=== PATIENT | female | born 1980 ===

== ENCOUNTER 2024-04-17 13:59 | Emergency (ER) | payer OTHER, SELFPAY ==
--- NOTE | ~2024-04-17 | XR_ITS ---
EXAMINATION: XR CHEST CLINICAL INFORMATION: right sided chest pain COMPARISON: None available. TECHNIQUE: 2 views of the chest were obtained. FINDINGS: The cardiac, hilar, and mediastinal contours are normal. The lungs are clear bilaterally. There is no pneumothorax or pleural effusion. There is no focal osseous or soft tissue abnormality. XR/XR chest 2V IMPRESSION: Normal chest. Electronically signed by: Brett Alan MD 04/17/2024 03:43 PM [facility]
--- NOTE | 2024-04-17 14:02 | ECG_ITS ---
Test Reason : chest pain Blood Pressure : / mmHG Vent. Rate : 075 BPM Atrial Rate : 075 BPM P-R Int : 136 ms QRS Dur : 088 ms QT Int : 374 ms P-R-T Axes : 051 050 042 degrees QTc Int : 417 ms Normal sinus rhythm with sinus arrhythmia Normal ECG No previous ECGs available Referred By: Melania Donovan Electronically Signed By:AKIRA TORRES
[2024-04-17 14:12] VITALS: BP 143/90; PULSE 78; RESP 16; TEMP 36.3; O2SAT 99; BMI 37.3
--- NOTE | 2024-04-17 14:12 | ED_ITS ---
HPI - Chest Pain General Chief Complaint: Chest Pain Stated Complaint: Chest pain, tightness in arms Time Seen by Provider: 04/17/24 15:07 Source: patient, RN notes reviewed and old records reviewed Mode of arrival: ambulatory History of Present Illness ED Provider: Zohreh Garcia PA-C HPI narrative: 43-year-old female with no significant past medical history presenting to the ED complaining of substernal/right-sided chest pain x 2-3 days with intermittent heaviness to RUE & lightheadedness. Admits pain worse with deep breathing and palpation. Admits saw PCP in office who ordered labs to rule out clot. Also reports dry cough and sick contacts. Denies fever, chills, nausea, vomiting, pedal edema, travel Related Data Allergies Allergy/AdvReac Type Severity Reaction Status Date / Time shellfish derived [shellfish] Allergy Anaphylaxis Verified 04/17/24 14:17 Review of Systems 2 Review of Systems: Yes all other systems are reviewed and are negative Constitutional: Constitutional: Reports as per [facility] Past Medical History Attestation statement: The following information was validated with the patient. Source: old records reviewed Social History Social History Smoked in Last 30 Days: No Use of substances other than those prescribed or required for medical reasons: No Advance Directives: No Advance Directives Information Provided: Yes Physical Exam 2 Vital Signs: Vital Signs: Last Vital Signs Temp 98.4 F 04/17/24 18:40 Pulse 68 04/17/24 18:40 Resp 18 04/17/24 18:40 BP 127/64 04/17/24 18:40 Pulse Ox 98 04/17/24 18:40 O2 Del Method Room Air 04/17/24 18:40 BMI result Body Mass Index 37.3 Const: General: cooperative, healthy appearing and no acute distress O rientation/consciousness: patient oriented x3 Limitations: no limitations HEENT: Head: Yes normal to inspection and Yes atraumatic Ears: hearing grossly normal bilaterally General nose exam: Normal external nose present Face and sinus: Yes normal facial exam Eyes: General: appearance normal, both eyes and all related structures EOM: EOMs intact bilaterally Neck: Neck: Yes normal visual inspection and Yes no meningeal signs Chest: Other: + chest pain reproducible to palpation o f right chest wall. No rash, erythema or ecchymosis Chest palpation & inspection: normal inspection of the chest, no crepitus and tenderness Resp: Effort & Inspection: normal respiratory effort and no respiratory distress Auscultation: clear to auscultation bilaterally, no crackles and no wheezes Cardio: Rate: regular rate Heart sounds: S1 normal heart sound present and S2 normal heart sound present GI: Inspection: Yes normal to inspection Palpation (GI): Soft to palpation, nontender, no guarding and not rigid : General: Yes no CVA tenderness Back/Spine/Pelvis: Back: no CVA tenderness Skin: Rashes: no rashes Wounds: no wounds Neuro: General: patient oriented x3, tone normal and no meningeal signs C ranial nerves: Yes CN's II-XII intact bilaterally Gait exam (Neuro): Normal gait present Extrem: General: Yes normal to inspection, Yes no pedal edema and Yes no calf tenderness Course Course Course Narrative: This is a Rapid Medical Examination (RME) performed by Miguelito Donovan PA-C in triage. Full HPI, ROS, assessment and treatment plan per primary provider in the Main ED. 43 yo female presents to the ER for evaluation of right sided chest pain that started 2 days ago, getting slightly better. feels like something is stuck in her chest. she reports new heavy feeling in her right arm and lightheadedness. seen at her PCP office yesterday and they ordered blood work to r/o blood clot, she had the blood work today. Plan: EKG, CXR, labs -1624--no leukocytosis. H/H stable. Troponin negative. Labs otherwise reassuring XR chest 2V IMPRESSION: Normal chest. -1828--D-dimer negative, PE unlikely -viral studies negative Results discussed with patient including worrisome signs and symptoms and strict return precautions, and when to return to the emergency department. They verbalized understanding and feel safe for discharge at this time. Medical Decision Making Medical Decision Making MDM Narrative: 43-year-old female with no significant past medical history presenting to the ED complaining of substernal/right-sided chest pain x 2-3 days with intermittent heaviness to RUE & lightheadedness. On exam vital signs stable, NAD, nontoxic appearing, lungs CTA, chest pain reproducible on exam, no pedal edema. Concern for costochondritis vs PE vs atypical ACS vs pneumonia. Low suspicion for dissection, DVT Plan: EKG, labs, CXR, viral studies Please refer to course for remaining clinical decision making, interpretation of labs/imaging results, and discussions with consultants and/or family members. Differential Diagnosis Differential Diagnoses: The differential diagnosis associated with the presentation includes As above Admission/Observation Consideration of admission/observation: Escalation of care including admission/observation considered Lab Data MDM Lab Attestation statement: I reviewed the patient's lab results. 04/17/24 14:30 04/17/24 14:30 Labs: Lab Results 04/17/24 04/17/24 04/17/24 Range/Units 14:30 14:58 16:51 WBC 5.4 (4.8-10.8) X10*3/uL RBC 3.69 L (4.20-5.50) X10*6/uL Hgb 11.4 L (12.0-16.0) g/dl Hct 34.8 L (37.0-47.0) % MCV 94.3 (80.0-98.0) fL MCH 30.9 (27.0-33.0) pg MCHC 32.8 (31.0-35.0) g/dl RDW 12.6 (11.0-16.0) % Plt Count 252 (160-400) X10*3/uL MPV 9.2 L (9.4-12.3) fL Immature Gran % (Auto) 0.2 (0.0-0.4) % Neut % (Auto) 59.9 (45-73) % Lymph % (Auto) 29.3 (20-40) % Sharp % (Auto) 7.7 (2-11) % Eos % (Auto) 2.2 (0-4) % Baso % (Auto) 0.7 (0-2) % Lymph # (Auto) 1.6 (1.2-4.9) X10*3/uL Sharp # (Auto) 0.4 (0.1-1.2) X10*3/uL Eos # (Auto) 0.1 (0.0-0.4) X10*3/uL Baso # (Auto) 0.0 (0.0-0.2) X10*3/uL Abs Immat Gran (auto) 0.01 (0.00-0.03) X10*3/uL Absolute Neuts (auto) 3.2 (2.0-8.3) x10*3/uL Absolute Nucleated RBC 0.000 (0.0-0.012) X10*3/uL Nucleated RBC % (auto) 0.0 (0.0-0.2) /100WBC D-Dimer High Sensitivty < 150 NG/ML Sodium 141 (135-145) mmol/L Potassium 3.9 (3.3-5.1) mmol/L Chloride 107 (96-108) mmol/L Carbon Dioxide 29 (22-29) mmol/L Anion Gap 9 L (12-20) BUN 11 (9-16) mg/dL Creatinine 0.72 (0.5-1.4) mg/dL Estim Creat Clear Calc 108.7 Estimated GFR > 60 Random Glucose 92 (60-115) mg/dL Calcium 8.9 (8.4-10.2) mg/dL Magnesium 1.9 (1.6-2.6) mg/dL Total Bilirubin 0.5 (0.0-1.0) mg/dL Direct Bilirubin 0.2 (0.0-0.5) mg/dL AST 20 (5-31) U/L ALT 10 (0-31) U/L Alkaline Phosphatase 67 (39-117) U/L Troponin I High Sens < 2.7 (<3.5-17.0) ng/L Total Protein 7.6 (6.5-8.0) g/dL Albumin 4.1 (3.5-5.0) g/dL Urine Test NEGATIVE (NEGATIVE) Influenza Type A (PCR) NEGATIVE (Negative) Influenza Type B (PCR) NEGATIVE (Negative) RSV RNA Qual (PCR) NEGATIVE (Negative) SARS-CoV-2 RNA (RT-PCR) NEGATIVE (Negative) Independent Interpretation I performed an independent interpretation of an: EKG (My interpretation EKG normal sinus rhythm with sinus arrhythmia rate of 75. QRS 88. QTC 417. No previous to compare. No STEMI ) and Plain X-Ray Radiology Impression Discussion of test interpretation with radiology: I have reviewed the radiologist's reading. External Record Review External record reviewed: Inpatient record, Office record, Outpatient record, Prior outpatient labs, Prior outpatient radiology, Primary care record and Outside ED record Tests considered The following testing was considered but not selected: As above Prescription Management I considered prescription management with: Pain Medication Chronic Conditions Patient?s care impacted by: Other Social Determinants Patient?s care significantly limited by Social Determinants of Health including: Other Social Determinant of Health Discharge Plan Discharge Clinical Impression: Atypical chest pain Patient Disposition: Home, Self-Care Instructions: Noncardiac Chest Pain (ED) Additional Instructions: Your blood work, chest x-ray, viral studies are all reassuring Please have close follow-up with her doctor as well as Cardiology If her symptoms persist or worsen, you have constant worsening chest pain, shortness of breath, fever return to the emergency department Referrals: [facility] [place] [facility] [place] [facility] [Provider Group] Annelise Montgomery MD [Primary Care Provider] - 1 week Interventions: ED Discharge Assessment Last Done: 04/17/24 18:40 Discharge Date/Time: 04/17/24 18:41 Print Language: Somali
[2024-04-17 14:35] LABS: Basophils Percent Auto 0.7 % (0-2); Eosinophils Absolute Auto 0.1 X10*3/uL (0.0-0.4); Eosinophils Percent Auto 2.2 % (0-4); Hematocrit 34.8 % (37.0-47.0); Hemoglobin 11.4 g/dl (12.0-16.0); Imm Gran Abs Auto 0.01 X10*3/uL (0.00-0.03); Imm Gran Pct Auto 0.2 % (0.0-0.4); Lymphocytes Absolute Auto 1.6 X10*3/uL (1.2-4.9); Lymphocytes Percent Auto 29.3 % (20-40); MANUAL DIFF FLAG NO; Mean Corpuscular HGB Conc 32.8 g/dl (31.0-35.0); Mean Corpuscular Hemoglobin 30.9 pg (27.0-33.0); Mean Corpuscular Volume 94.3 fL (80.0-98.0); Mean Platelet Volume 9.2 fL (9.4-12.3); Monocytes Absolute Auto 0.4 X10*3/uL (0.1-1.2); Monocytes Percent Auto 7.7 % (2-11); Neutrophils Absolute Auto 3.2 x10*3/uL (2.0-8.3); Neutrophils Percent Auto 59.9 % (45-73); Platelet Count 252 X10*3/uL (160-400); Red Blood Count 3.69 X10*6/uL (4.20-5.50); Red Cell Distribution Width 12.6 % (11.0-16.0); White Blood Count 5.4 X10*3/uL (4.8-10.8)
[2024-04-17 14:51] LABS: Alanine Aminotransferase 10 U/L (0-31); Albumin Level 4.1 g/dL (3.5-5.0); Alkaline Phosphatase 67 U/L (39-117); Anion Gap 9 (12-20); Aspartate Amino Transferase 20 U/L (5-31); Bilirubin Direct 0.2 mg/dL (0.0-0.5); Bilirubin Total 0.5 mg/dL (0.0-1.0); Blood Urea Nitrogen 11 mg/dL (9-16); Calcium 8.9 mg/dL (8.4-10.2); Carbon Dioxide 29 mmol/L (22-29); Chloride 107 mmol/L (96-108); Creatinine Clr Calc Pharmacy 108.7; Estimated Glomerular Filt Rate > 60; Glucose Random 92 mg/dL (60-115); Magnesium 1.9 mg/dL (1.6-2.6); Potassium 3.9 mmol/L (3.3-5.1); Sodium 141 mmol/L (135-145); Total Protein 7.6 g/dL (6.5-8.0)
[2024-04-17 14:58] LABS: Troponin-I High Sensitivity < 2.7 ng/L (<3.5-17.0)
[2024-04-17 15:11] LABS: UPreg QC Valid YES; Urine Pregnancy NEGATIVE (NEGATIVE)
[2024-04-17 16:00] VITALS: BP 97/61; PULSE 85; RESP 18; TEMP 36.8; O2SAT 100
[2024-04-17 17:25] LABS: D Dimer High Sensitivity < 150 NG/ML
[2024-04-17 17:37] LABS: Influenza A PCR NEGATIVE (Negative); Influenza B PCR NEGATIVE (Negative); Resp Syncy Virus RNA Qual PCR NEGATIVE (Negative); SARS COV2 PCR INHOUSE NEGATIVE (Negative)
[2024-04-17 18:00] VITALS: BP 124/74; PULSE 98; RESP 18; O2SAT 98
[2024-04-17 18:40] VITALS: BP 127/64; PULSE 68; RESP 18; TEMP 36.9; O2SAT 98
--- OUTSIDE RECORDS SUMMARY | 2024-04-17 18:49 | XMS_ITS | Data Portability ---
Author Organization [facility], [address] Address [address] [place] [address] Assessment No assessment recorded. Plan of Treatment Reminders Order Date Submit Date Provider Last Modified By Organization Details Last Modified Time Details Appointments None recorded. Lab None recorded. Referral None recorded. Procedures None recorded. Surgeries None recorded. Imaging None recorded. Medication Orders polymyxin B sulfate 10,000 unit-trime thoprim 1 mg/mL eye drops 2022 023 [id number], [phone] [place], [address], 19:36:53 Patient TargetsNo targets recorded. Patient Instructions Encounter Date Encounter Id Patient Instructions Last Modified By Organization Details Last Modified Time 12/25/2022 [id number] pinkeye: care instructions [email or web address] Not available 12/25/2022 19:36:51 styes and chalazia: care instructions [email or web address] Not available 12/25/2022 19:36:51 Use the eye drop s as prescribed. Apply warm compresses to your eye frequently. Do not manipulate the styes. See printed instructions. Follow-up with your doctor or [facility] if no improvement in a few days. Seek Emergency Medical evaluation for any worsening symptoms, particularly for fever, headache, rash, stiff neck, visual disturbance, light sensitivity. [email or web address] Not available 12/25/2022 19:38:22 Reason for Referral None Reported. 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 Medical Equipment None Reported. Allergies Allergen ID Allergen Name Allergen Category Reaction Reaction Severity Criticality Documentation Date Start Date Code Code System Note Provider Name and Address Organization Details Recorded Time 857413 cat dander environme nt Not available Not available low 12/25/2022 THEO MARION null, PA - [facility] 3 18:20:58 Medications Name Sig Start Date Stop Date Status Note LastModified by Organization Details LastModified Time ondansetron HCl 4 mg tablet TAKE 1 TABLET BY MOUTH EVERY 8 HOURS NEEDED FOR NAUSEA FOR UP TO 7 DAYS. 12/25 completed Not Available Not Available Not Available polymyxin B sulfate 10,000 unit-trimet hoprim 1 mg/mL eye drops INSTILL 1 DROP INTO AFFECTED EYE(S) BY OPHTHALMI C ROUTE EVERY 6 HOURS 2022 active Not Available Not Available Not Avai lable ergocalcife rol (vitamin D2) 1,250 mcg (50,000 unit) capsule TAKE 1 CAPSULE BY MOUTH ONCE A WEEK FOR 12 DOSES. 12/25 completed Not Available Not Available Not Available diclofenac 1 % topical gel APPLY 4 GRAMS TOPICALLY 2 TIMES DAILY NEEDED (KNEE AND ELBOW PAIN) 12/25 completed Not Available Not Available Not Available Vitals Date Recorded Oxygen saturation Oxygen saturation in Arterial blood by Pulse oximetry Heart rate Respiratory rate Body temperature Body height Body mass index (BMI) Body weight Systolic blood pressure Diastolic blood pressure Provider Name and Address Organization Details Last Updated DateTime 100 % 100 % 90 /min 19 /min 98.8 [degF] 157.48 cm 36.2 kg/m2 30698.2 9 g 107 mm[Hg] 74 mm[Hg] THEO GONZALEZCOCO PA - [facility] 18:27:04 Social History Question Answer Notes LastModified by Organizat ion Details LastModified Time Tobacco Smoking Status Never Smoker THEO AGUIRREALBINO neri, [place] - [facility] 12/25/2022 18:24:43 What Is Your Level Of Alcohol Consumption? None Information not available 12/25/2022 Are You Currently Employed? No Information not available 12/25/2022 Do You Use Any Illicit Or Recreational Drugs? No Information not available 12/25/2022 Have You Recently Traveled Abroad? No [place] Information not available 12/25/2022 Are You Currently In School? No Information not available 12/25/2022 Sex: Unknown Functional Status None recorded. Mental Status None recorded. Family History Relationship Description Onset Age of this Age Resolved Age Notes LastModified by Organization Details LastModified Time Father Schizophreni a [email or web address] Not available 12/25 18:24:08 Medical History No medical history recorded. Gynecological History Statement/Question Response Date of LMP 11/07/2022 Is there any chance of ? Unsure Obstetrics History GPAL:G 0 P 0 0 0 0 Past Encounters Encounter ID Performer Location Encounter Start Date Encounter Closed Date Diagnosis/Indication Diagnosis SNOMED-CT Code Diagnosis ICD10 Code [id number] [address] [place] [address] 01/23/2022 17:43:21 01/23/2022 19:23:43 [id number] [address] [place] [address] 12/06/2017 16:01:23 12/06/2017 17:41:18 [id number] [address] [facility] [place] [address] 11/25/2021 09:57:46 11/25/2021 10:23:01 [id number] [address] [facility] [place] [address] 03/27/2018 17:01:58 03/27/2018 18:28:32 [id number] [place] [address] [facility] [address] [place] [address] 12/25/2022 18:16:29 12/25/2022 19:49:20 Hordeolum externum of upper eyelid of left eye 8248026430 51330 H00.014 Acute conj unctivitis of left eye 6393826107 88419 H10.32 Health Concerns Section Related Observation LastModified by Organization Detai ls LastModified Time None Recorded Concern Status LastModified by Organization Details LastModified Time None Recorded Advance Directives Directive None Recorded Payers Encounter Date Sequence Insurance Name Policy Number Policy Charles Covered Member ID Charles Member ID Guarantor Name 12/06/2017 1 [employer] (MEDICAID HMO) [employer] Aleshia L Agarwal [id number] Aleshia Agarwal 03/27/2018 1 [employer] (MEDICAID HMO) [employer] Aleshia L Agarwal [id number] Aleshia Agarwal 11/25/2021 1 [employer] (MEDICAID HMO) [employer] Aleshia L Agarwal [id number] Aleshia Agarwal 01/23/2022 1 [employer] (MEDICAID HMO) [employer] Aleshia L Agarwal [id number] Aleshia Agarwal 12/25/2022 1 [employer] (MEDICAID HMO) [employer] Aleshia L Agarwal [id number] Aleshia Agarwal Notes Date Note Type Note Provider Name and Address Organization Details Recorded Time 3 text/html Eye problemsReported bypatient.source of patient informationInformation obtained from patient; Patient arrived at Urgent Care ambulatory Location:left Eye Symptoms:no sensitivity to light; no pain in the eyes; no blurred vision;redness;discharge;it snehal; Left upper and lower lid swelling with ? stye. Severity:moderate Onset/Timindays Context:No history of eye trauma, contact lens use, foreign body sensation, chemical exposure. Modifying Factors:nothing gives relief bridgette Aggravating factors:No photophobia.Notes:42 year old female presenting for evaluation of left upper and lower lid redness and swelling with tenderness and possible stye getting worse for the past 3 days. She has also noted some eye redness and itching with a crusty yellow discharge. No fever, chills, headache, blurry vision, direct eye pain, photophobia, eye trauma, contact lens use, foreign body sensation or chemical exposure. No rash, headache or nasal congestion. Claudia Jerez MD [address] [facility] [place], [address], [place] - [facility] 12/28/2022 14:46:11 OBGyn Episode No OBEpisode recorded.
== END 2024-04-17 18:41 | disposition home or self-care (01) ==
PROVIDERS: Physician Assistant; Emergency Provider Emergency Medicine; PCP Internal Medicine
DX: R07.89 Other chest pain (principal); Z03.818 Encounter for observation for suspected exposure to other biological agents ruled out; R05.9 Cough, unspecified
CPT/HCPCS: 0241U; 36415; 71046; 80048; 80076; 81025; 83735; 84484; 85025; 85379; 93005; 99283; 99285

== ENCOUNTER → 2024-04-17 14:02 | Outpatient (BNV) | payer MEDICAID, SELFPAY | PROVIDERS: PCP Internal Medicine; Visit Provider Internal Medicine | DX: R07.9 Chest pain, unspecified (principal) | CPT/HCPCS: 93010 ==

== ENCOUNTER → 2024-04-17 14:17 | Outpatient (BNV) | payer MEDICAID, SELFPAY | PROVIDERS: PCP Internal Medicine; Visit Provider Radiology Diagnostic Radiology | DX: R07.9 Chest pain, unspecified (principal) | CPT/HCPCS: 71046 ==

== ENCOUNTER 2024-09-21 10:03 | Emergency (ER) | payer OTHER, SELFPAY ==
[2024-09-21] VITALS (9 sets, daily range): BP systolic 94–132; BP diastolic 55–72; PULSE 65–88; RESP 16–20; TEMP 36.5–37.1; O2SAT 95–100; BMI 38.6
--- NOTE | ~2024-09-21 | CT_ITS ---
CLINICAL HISTORY: R sided neck pain, R finger numbness CT cervical spine without contrast Comparison: None Findings: Straightening of the normal cervical lordosis. No fracture. Multilevel degenerative change is most prominent at C6/C7 with moderate to severe central spinal canal stenosis. No epidural hematoma. Normal thickness of the prevertebral soft tissues. The lung apices are clear. Impression: Straightening of the normal cervical lordosis could be positional or secondary to muscle spasm. Multilevel degenerative change is most prominent at C6/C7 with moderate to severe central spinal canal stenosis. This can be better characterized with nonemergent cervical spine MR. This document has been electronically signed by: Elizabeth Rojo MD on 09/21/2024 13:17:41
--- NOTE | ~2024-09-21 | XR_ITS ---
CLINICAL HISTORY: exertional sob, cough Chest Radiographs, 2 views Comparison: 04/17/24 Findings: No cardiomegaly. Normal mediastinal contours. No pneumothorax. No opacity. No pleural effusion. Normal upper abdomen. No acute fracture. Impression: No acute findings. This document has been electronically signed by: Elizabeth Rojo MD on 09/21/2024 13:21:46
--- NOTE | 2024-09-21 10:43 | ECG_ITS ---
Test Reason : NUEROLOGICAL ISSUE Blood Pressure : */* mmHG Vent. Rate : 72 BPM Atrial Rate : 72 BPM P-R Int : 136 ms QRS Dur : 88 ms QT Int : 398 ms P-R-T Axes : 44 48 41 degrees QTcB Int : 435 ms Normal sinus rhythm with sinus arrhythmia Normal ECG When compared with ECG of 17-Apr-2024 14:11, No significant change was found Referred By: Generic ED Physician Electronically Signed By: Spencer Samano
[2024-09-21 11:07] LABS: MANUAL DIFF FLAG NO
[2024-09-21 11:09] LABS: Basophils Absolute Auto 0.1 X10*3/uL (0.0-0.2); Basophils Percent Auto 1.3 % (0-2); Eosinophils Absolute Auto 0.2 X10*3/uL (0.0-0.4); Eosinophils Percent Auto 3.7 % (0-4); Hematocrit 35.6 % (37.0-47.0); Hemoglobin 11.7 g/dl (12.0-16.0); Imm Gran Abs Auto 0.01 X10*3/uL (0.00-0.03); Imm Gran Pct Auto 0.2 % (0.0-0.4); Lymphocytes Absolute Auto 1.4 X10*3/uL (1.2-4.9); Lymphocytes Percent Auto 29.7 % (20-40); Mean Corpuscular HGB Conc 32.9 g/dl (31.0-35.0); Mean Corpuscular Hemoglobin 30.5 pg (27.0-33.0); Mean Corpuscular Volume 92.7 fL (80.0-98.0); Monocytes Absolute Auto 0.4 X10*3/uL (0.1-1.2); Monocytes Percent Auto 8.8 % (2-11); Neutrophils Absolute Auto 2.6 x10*3/uL (2.0-8.3); Neutrophils Percent Auto 56.3 % (45-73); Platelet Count 279 X10*3/uL (160-400); Red Blood Count 3.84 X10*6/uL (4.20-5.50); Red Cell Distribution Width 12.5 % (11.0-16.0); White Blood Count 4.6 X10*3/uL (4.8-10.8)
--- NOTE | 2024-09-21 11:20 | ED_ITS ---
HPI - Neuro Symptoms/Deficit General Chief Complaint: Neuro Symptoms/Deficit Stated Complaint: numbness in hands Time Seen by Provider: 09/21/24 11:20 Source: patient, RN notes reviewed and old records reviewed Mode of arrival: ambulatory History of Present Illness ED Provider: Zohreh Garcia PA-C HPI Narrative: 44-year-old female no significant past medical history presenting to the ED complaining of right 2nd and 3rd finger paresthesias/numbness since waking this morning. Admits symptoms are resolved at present. Admits to similar episodes in the past. Also reports right-sided neck pain, exertional dyspnea, cough & lightheadedness - all intermittent x months. Denies fever, chills, [place], weakness. Denies anticoagulation use. Related Data Allergies Allergy/AdvReac Type Severity Reaction Status Date / Time shellfish derived [shellfish] Allergy Anaphylaxis Verified 09/21/24 10:41 Review of Systems 2 Review of Systems: Yes all other systems are reviewed and are negative Constitutional: Constitutional: Reports as per HPI Neurologic: Denies Abnormal speech present and Denies Sensory deficit (Neuro) [facility] Past Medical History Attestation statement: The following information was validated with the patient. Source: old records reviewed Physical Exam 2 Vital Signs: Vital Signs: Last Vital Signs Temp 98.7 F 09/21/24 16:04 Pulse 68 09/21/24 16:04 Resp 20 09/21/24 16:04 BP 132/71 09/21/24 16:04 Pulse Ox 95 09/21/24 16:04 O2 Del Method Room Air 09/21/24 16:04 BMI result Body Mass Index 38.6 Const: General: cooperative, healthy appearing and no acute distress O rientation/consciousness: patient oriented x3 Limitations: no limitations HEENT: Head: Yes normal to inspection and Yes atraumatic Ears: hearing grossly normal bilaterally General nose exam: Normal external nose present Face and sinus: Yes normal facial exam Mouth: Normal oral and palatal mucosa present and no drooling Throat: Yes posterior oropharynx normal, Yes uvula midline, No peritonsillar mass, No uvula laterally displaced and No uvular edema Eyes: General: appearance normal, both eyes and all related structures P upils: Equal, round and reactive pupils present EOM: EOMs intact bilaterally Neck: Other: No midline cervical spinous tenderness. Right-sided cervical paraspinal/trapezius muscle reproducible tenderness Neck: Yes normal visual inspection, Yes no meningeal signs, No anterior neck swelling and No torticollis Resp: Effort & Inspection: normal respiratory effort and no respiratory distress Auscultation: clear to auscultation bilaterally, no crackles, no rhonchi and no wheezes Cardio: Rate: regular rate Heart sounds: S1 normal heart sound present and S2 normal heart sound present GI: Inspection: Yes normal to inspection Palpation (GI): Soft to palpation, nontender, no guarding and not rigid Back/Spine/Pelvis: Other: No midline cervical/thoracic/lumbar spinous tenderness/step-off or deformity Skin: Rashes: no rashes Wounds: no wounds Neuro: General: patient oriented x3, gait normal, tone normal, moves all extremities, no meningeal signs, no focal motor deficits and CN's II-XI intact bilaterally Cranial nerves: Yes CN's II-XII intact bilaterally, Yes Equal, round and reactive pupils present and Yes Bilaterally intact EOM present C ognition (Neuro): normal cognition Speech: No Abnormal speech present Gait exam (Neuro): Normal gait present Motor exam (neuro): 5/5 motor strength present throughout Sensory Exam: No Sensory deficit (Neuro) Extrem: General: Yes normal to inspection Course Course Course Narrative: -1400--no leukocytosis. H&H at patient's baseline. Labs otherwise reassuring including negative troponin -viral testing negative XR chest 2V Impression: No acute findings. CT cervical spine wo IV con Impression: Straightening of the normal cervical lordosis could be positional or secondary to muscle spasm. Multilevel degenerative change is most prominent at C6/C7 with moderate to severe central spinal canal stenosis. This can be better characterized with nonemergent cervical spine MR. -orthostatic vital signs negative > results discussed with patient. Recommended outpatient nonemergent MRI. Patient is supplied with copy of CT results -1528--troponin x2 negative Results discussed with patient including worrisome signs and symptoms and strict return precautions, and when to return to the emergency department. They verbalized understanding and feel safe for discharge at this time. Medical Decision Making Medical Decision Making MDM Narrative: 44-year-old female no significant past medical history presenting to the ED complaining of right 2nd and 3rd finger paresthesias/numbness since waking this morning. Also reports right-sided neck pain, exertional dyspnea, cough & lightheadedness - all intermittent x months. On exam vital signs stable, NAD, nontoxic appearing, no focal neuro deficits, lungs CTA. Concern for atypical ACS vs cervical radiculopathy vs viral illness. Rule out pneumonia. Unlikely PE, dissection, DVT, CVT or meningitis/encephalitis Plan: EKG, labs, CXR, cervical spine CT, re-evaluate Please refer to course for remaining clinical decision making, interpretation of labs/imaging results, and discussions with consultants and/or family members. Differential Diagnosis Differential Diagnoses: The differential diagnosis associated with the presentation includes As above Admission/Observation Consideration of admission/observation: Escalation of care including admission/observation considered Lab Data MDM Lab Attestation statement: I reviewed the patient's lab results. 09/21/24 11:02 09/21/24 11:02 Labs: Lab Results 09/21/24 09/21/24 09/21/24 Range/Units 11:02 11:38 14:37 WBC 4.6 L (4.8-10.8) X10*3/uL RBC 3.84 L (4.20-5.50) X10*6/uL Hgb 11.7 L (12.0-16.0) g/dl Hct 35.6 L (37.0-47.0) % MCV 92.7 (80.0-98.0) fL MCH 30.5 (27.0-33.0) pg MCHC 32.9 (31.0-35.0) g/dl RDW 12.5 (11.0-16.0) % Plt Count 279 (160-400) X10*3/uL MPV 9.0 L (9.4-12.3) fL Immature Gran % (Auto) 0.2 (0.0-0.4) % Neut % (Auto) 56.3 (45-73) % Lymph % (Auto) 29.7 (20-40) % Reynolds % (Auto) 8.8 (2-11) % Eos % (Auto) 3.7 (0-4) % Baso % (Auto) 1.3 (0-2) % Lymph # (Auto) 1.4 (1.2-4.9) X10*3/uL Reynolds # (Auto) 0.4 (0.1-1.2) X10*3/uL Eos # (Auto) 0.2 (0.0-0.4) X10*3/uL Baso # (Auto) 0.1 (0.0-0.2) X10*3/uL Abs Immat Gran (auto) 0.01 (0.00-0.03) X10*3/uL Absolute Neuts (auto) 2.6 (2.0-8.3) x10*3/uL Absolute Nucleated RBC 0.000 (0.0-0.012) X10*3/uL Nucleated RBC % (auto) 0.0 (0.0-0.2) /100WBC Sodium 140 (135-145) mmol/L Potassium 3.7 (3.3-5.1) mmol/L Chloride 106 (96-108) mmol/L Carbon Dioxide 25 (22-29) mmol/L Anion Gap 13 (12-20) BUN 9 (9-16) mg/dL Creatinine 0.75 (0.5-1.4) mg/dL Estim Creat Clear Calc 105.4 Estimated GFR > 60 Random Glucose 93 (60-115) mg/dL Calcium 8.9 (8.4-10.2) mg/dL Magnesium 2.1 (1.6-2.6) mg/dL Total Bilirubin 0.8 (0.0-1.0) mg/dL AST 20 (5-31) U/L ALT 12 (0-31) U/L Alkaline Phosphatase 83 (39-117) U/L Troponin I High Sens < 2.7 < 2.7 (<3.5-17.0) ng/L Total Protein 7.5 (6.5-8.0) g/dL Albumin 4.1 (3.5-5.0) g/dL Influenza Type A (PCR) NEGATIVE (Negative) Influenza Type B (PCR) NEGATIVE (Negative) RSV RNA Qual (PCR) NEGATIVE (Negative) SARS-CoV-2 RNA (RT-PCR) NEGATIVE (Negative) Independent Interpretation I performed an independent interpretation of an: EKG, Plain X-Ray and CT Scan Radiology Impression Discussion of test interpretation with radiology: I have reviewed the radiologist's reading. External Record Review External record reviewed: Inpatient record, Office record, Outpatient record, Prior outpatient labs, Prior outpatient radiology, Primary care record and Outside ED record Tests considered The following testing was considered but not selected: As above Prescription Management I considered prescription management with: Other Chronic Conditions Patient?s care impacted by: Other Social Determinants Patient?s care significantly limited by Social Determinants of Health including: Other Social Determinant of Health Discharge Plan Discharge Clinical Impression: Neck muscle spasm, Paresthesia, Exertional dyspnea Patient Disposition: Home, Self-Care Instructions: Paresthesia (ED), Dyspnea (ED), Muscle Spasm (ED) Additional Instructions: Your blood work is reassuring Your you head scan shows some degenerative/arthritic changes of your cervical spine. We recommended nonemergent cervical spine MRI outpatient. This can be done by your primary care doctor. There is also evidence of muscle spasming Make sure you are staying hydrated at home Continue home prescribed medications If her symptoms persist or worsen return, you develop constant worsening chest pain, shortness of breath, weakness, headache, vision loss return to the ED to the emergency department Referrals: Annelise Montgomery MD [Primary Care Provider] - 5 days Interventions: ED Discharge Assessment Last Done: 09/21/24 16:04 Discharge Date/Time: 09/21/24 16:05 Print Language: Libyan
[2024-09-21 11:21] LABS: Alanine Aminotransferase 12 U/L (0-31); Albumin Level 4.1 g/dL (3.5-5.0); Alkaline Phosphatase 83 U/L (39-117); Anion Gap 13 (12-20); Aspartate Amino Transferase 20 U/L (5-31); Bilirubin Total 0.8 mg/dL (0.0-1.0); Blood Urea Nitrogen 9 mg/dL (9-16); Calcium 8.9 mg/dL (8.4-10.2); Carbon Dioxide 25 mmol/L (22-29); Chloride 106 mmol/L (96-108); Creatinine Clr Calc Pharmacy 105.4; Estimated Glomerular Filt Rate > 60; Glucose Random 93 mg/dL (60-115); Potassium 3.7 mmol/L (3.3-5.1); Sodium 140 mmol/L (135-145); Total Protein 7.5 g/dL (6.5-8.0)
[2024-09-21 11:47] LABS: Magnesium 2.1 mg/dL (1.6-2.6)
[2024-09-21 12:11] LABS: Troponin-I High Sensitivity < 2.7 ng/L (<3.5-17.0)
[2024-09-21 12:19] LABS: Influenza A PCR NEGATIVE (Negative); Influenza B PCR NEGATIVE (Negative); Resp Syncy Virus RNA Qual PCR NEGATIVE (Negative); SARS COV2 PCR INHOUSE NEGATIVE (Negative)
[2024-09-21 15:22] LABS: Troponin-I High Sensitivity < 2.7 ng/L (<3.5-17.0)
== END 2024-09-21 16:05 | disposition home or self-care (01) ==
PROVIDERS: Physician Assistant; Emergency Provider Emergency Medicine; PCP Internal Medicine
DX: R20.0 Anesthesia of skin (principal); M54.2 Cervicalgia; I49.8 Other specified cardiac arrhythmias; M62.838 Other muscle spasm; R06.02 Shortness of breath; Z03.818 Encounter for observation for suspected exposure to other biological agents ruled out; Z79.899 Other long term (current) drug therapy
CPT/HCPCS: 0241U; 36415; 71046; 72125; 80053; 83735; 84484; 85025; 93005; 99284

== ENCOUNTER → 2024-09-21 10:43 | Outpatient (BNV) | payer OTHER, SELFPAY | PROVIDERS: Emergency Provider Emergency Medicine; PCP Internal Medicine; Visit Provider Internal Medicine Cardiovascular Disease | DX: R20.2 Paresthesia of skin (principal) | CPT/HCPCS: 93010 ==

== ENCOUNTER → 2024-09-21 11:34 | Outpatient (BNV) | payer OTHER, SELFPAY | PROVIDERS: Emergency Provider Emergency Medicine; PCP Internal Medicine; Visit Provider Radiology Diagnostic Radiology | DX: M50.323 Other cervical disc degeneration at C6-C7 level (principal); M48.02 Spinal stenosis, cervical region; R06.02 Shortness of breath; R05.9 Cough, unspecified | CPT/HCPCS: 71046; 72125 ==

== ENCOUNTER 2025-03-01 12:09 | Emergency (ER) | payer OTHER, SELFPAY ==
[2025-03-01 12:25] VITALS: BP 132/72; PULSE 94; RESP 18; TEMP 36.1; O2SAT 98; BMI 39.8
--- NOTE | 2025-03-01 12:25 | ED_ITS ---
HPI - General Adult General Chief complaint: General Medical Stated complaint: feeling sick due being exposed to a substance Time Seen by Provider: 03/01/25 14:08 Source: patient Mode of arrival: ambulatory Limitations: no limitations History of Present Illness ED Provider: Noemy Prado PA-C HPI narrative: Patient is a 44 year old assigned female at with no reported medical history presenting to the emergency department today feeling generally unwell after touching an unknown substance. Patient states that while cleaning the company car - she encountered an unknown substance and then had numbness in her left thumb / hand afterwards that has now resolved. 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 Patient denies any other complaints at this time. Related Data Allergies Allergy/AdvReac Type Severity Reaction Status Date / Time shellfish derived (shellfish) Allergy Anaphylaxis Verified 03/01/25 12:25 Review of Systems Constitutional: Constitutional: Reports as per HPI Eyes: Eyes: Reports as per HPI ENT: Reports as per HPI Cardiovascular: Cardiovascular: Reports as per HPI Respiratory: Respiratory: Reports as per HPI Gastrointestinal: Gastrointestinal: Reports as per HPI Genitourinary: Genitourinary: Reports as per HPI Musculoskeletal: Musculoskeletal: Reports as per HPI Integumentary/Breasts: Skin/Breast: Reports as per HPI Neurologic: Reports as per HPI Psychiatric: Psychiatric: Reports as per HPI Endocrine: Endocrine: Reports as per HPI Hematologic/Lymphatic: Hematologic/Lymphatic: Reports as per HPI Allergic/Immunologic: Allergic/Immunologic: Reports as per HPI PMF Past Medical History Attestation statement: The following information was validated with the patient. Source: old records reviewed and nursing notes reviewed Social History Social History Advance Directives: No Advance Directives Information Provided: Yes Physical Exam ED Vital Signs: BMI result Body Mass Index 39.8 Const General: cooperative, no acute distress, alert and awake Nutritional Appearance: well nourished Orientation/consciousness: patient oriented x3 HENMT Head: Yes normal to inspection and Yes atraumatic Ears: hearing grossly normal bilaterally and external ears normal General nose exam: Normal external nose present, no nasal discharge noted and no epistaxis Face and sinus: Yes normal facial exam, No abrasion and No laceration Mouth: Normal oral and palatal mucosa present, no drooling and no muffled voice Eyes General: appearance normal, both eyes and all related structures Periorbital: periorbital findings normal Eyelids: Yes eyelids normal Conjunctivae: conjunctivae normal Pupils: Equal, round and reactive pupils present EOM: EOMs intact bilaterally Neck Neck: Yes normal visual inspection and Yes full ROM Resp Effort & Inspection: normal respiratory effort and able to speak in complete sentences Neuro General: patient oriented x3, moves all extremities and CN's II-XI intact bilaterally Cranial nerves: Yes Equal, round and reactive pupils present Cognition (Neuro): normal cognition Extrem General: Yes normal to inspection, Yes full ROM and Yes capillary refill normal Psych Appearance: grossly normal Mental Status: mental status grossly normal Affect: normal affect Attitude: cooperative Thought process: Normal thought process present Thought content: Normal thought content present Insight: Good insight present (Psych) Course Course Course Narrative: This is a Rapid Medical Exam performed in triage by Zohreh Gracia PA-C. Full HPI, ROS and PE to be performed by primary ED provider. 44 yo F w/no sig pmhx presenting to the ED c/o L hand numbness/tingling s/p cleaning husbands company work car [employer] & touching unknown substance. States her husbands job involves driving patrons to Meth[facility]one clinics. Admits grabbed a samuel on the car floor that had a substance on it and immediately developed symptoms. PE: NAD, nontoxic appearing Plan: EKG, TREJO Medical Decision Making Medical Decision Making MDM Narrative: Patient is a 44 year old assigned female at with no reported medical history presenting to the emergency department today feeling generally unwell after touching an unknown substance. Patient's physical exam was as noted in the physical exam portion of this note. Patient's urine toxicology showed no acute process. Patient's EKG showed no obvious evidence of arrhythmia, ischemia, or infarct. Patient's clinical presentation is most consistent with a somatic response to a perceived exposure to a potentially dangerous substance. I explained my physical exam findings as well as all test results to the patient. I answered all questions asked by the patient. I stressed the importance of the patient taking her medication as directed (either prescribed or as the over the counter packaging recommends). I stressed the importance of the patient following up with her primary care provider. I stressed the importance of the patient returning to the emergency department immediately if her symptoms were to worsen or if she were to develop any dizziness, shortness of breath, difficulty breathing, chest pain, blurry vision, loss of vision, nausea, vomiting, abdominal pain, fever, chills, back pain, or any other complaints. Patient verbalized agreement and understanding with this treatment plan and discharge. Differential Diagnosis Differential Diagnoses: The differential diagnosis associated with the presentation includes Substance exposure Anxiety Somatic response Admission/Observation Consideration of admission/observation: Escalation of care including admission/observation considered Patient would have been admitted to the hospital had her work up had any findings where hospital admission was appropriate and her clinical presentation warranted hospital admission. Lab Data [facility] Lab Attestation statement: I reviewed the patient's lab results. My interpretation of these results are in the [facility] Rationale portion of this note. Labs: Lab Results 03/01/25 Range/Units 13:00 Urine Opiates Screen Not Detected (Not Detect) Ur Buprenorphine Scrn Not Detected (Not Detect) ng/mL Ur Oxycodone Screen Not Detected (Not Detect) ng/mL Urine Methadone Screen Not Detected (Not Detect) ng/mL Urine Fentanyl Screen Not Detected (Not Detect) Ur Barbiturates Screen Not Detected (Not Detect) Ur Phencyclidine Scrn Not Detected (Not Detect) Ur Amphetamines Screen Not Detected (Not Detect) U Benzodiazepines Scrn Not Detected (Not Detect) Urine Cocaine Screen Not Detected (Not Detect) U Marijuana (THC) Screen Not Detected (Not Detect) Independent Interpretation I performed an independent interpretation of an: EKG Interpretation: I independently interpreted this EKG and am in agreement with the below findings: Vent. Rate: 71 BPM Atrial Rate: 71 BPM P-R Int: 126 ms QRS Dur: 78 ms QT Int: 396 ms P-R-T Axes: 62 59 55 degrees QTcB Int: 430 ms Normal sinus rhythm When compared with ECG of 21-Sep-2024 10:49, No significant change was found Referred By: Zohreh Garcia Electronically Signed By: Spencer Samano Dictated By: Spencer Samano MD Signed By: Electronically signed by Spencer Samano MD 03/03/25 1640 Tests considered The following testing was considered but not selected: I considered obtaining lab work including a CBC, CMP, and trponin however - the patient's current clinical presentation did not warrant this at this time given her symptoms are completely resolved and there is no evidence of ingestion. Discharge Plan Discharge Clinical Impression: Paresthesias Patient Disposition: Home, Self-Care Instructions: Paresthesia (ED) Additional Instructions: Your work up today was unremarkable. IF you are prescribed home medications and/or you are taking over the counter medications at home - it is very important you continue to do so as prescribed / directed unless told otherwise. Follow up with your primary care provider. Return to the emergency department immediately if your symptoms worsen or if you develop any numbness, tingling, dizziness, shortness of breath, difficulty breathing, chest pain, blurry vision, loss of vision, nausea, vomiting, abdominal pain, fever, chills, back pain, or any other complaints. Please see the information below about our Patient Portal. If you are not yet enrolled in the [facility] Patient Portal, you will receive an enrollment email invitation following your visit to any [facility] setting. You may also self-enroll in the Patient Portal by visiting our website: [email or web address] The following information is required to access the Patient Portal: - Your [facility] Medical Record Number - Your personal home email address (must match what is in your electronic medical record, Registration staff can assist with this) - Name - Date of Capabilities of the Patient Portal: - Message some providers - View upcoming appointments - Access your health summary, medical history, and visit history - View current conditions and allergies - View procedure and lab results - View your medications, including guidelines, side effects, and precautions - Complete pre-appointment questionnaires requested by your provider - Ready summary reports of your office visits and procedures To access the Patient Portal Mobile [employer], follow these directions: - Search [employer] in the [employer] Store or [employer] - Download the [employer] - Search for [facility] - Enter your login/password Referrals: Annelise Montgomery MD [Primary Care Provider, Internal Medicine] Interventions: ED Discharge Assessment Last Done: 03/01/25 14:35 Discharge Date/Time: 03/01/25 14:36 Print Language: German
--- NOTE | 2025-03-01 12:29 | ECG_ITS ---
Test Reason : LUE T[place] Blood Pressure : */* mmHG Vent. Rate : 71 BPM Atrial Rate : 71 BPM P-R Int : 126 ms QRS Dur : 78 ms QT Int : 396 ms P-R-T Axes : 62 59 55 degrees QTcB Int : 430 ms Normal sinus rhythm Normal ECG When compared with ECG of 21-Sep-2024 10:49, No significant change was found Referred By: Zohreh Garcia Electronically Signed By: Spencer Samano
[2025-03-01 13:19] LABS: Cannabinoid Screen Urine Not Detected (Not Detect)
--- OUTSIDE RECORDS SUMMARY | 2025-03-01 14:06 | XMS_ITS | Data Portability ---
Author Organization [place] [facility], Allergy Address [address] [address] Care Team Providers Care Adobe Ball Mixer Name Role Phone MACIE DUMONT Referring Provider [phone] Assessment Encounter Date Assessment Date Assessment LastModified by Organization Details LastModified Time 12/17/2024 12/17/2024 44-year-old female presents for evaluation of bilateral tinnitus. Audiometric testing was performed today and shows normal hearing and tympanometry bilaterally. Results were reviewed in detail with patient. Otologic exam is also unremarkable. In her case tinnitus is idiopathic. We reviewed masking techniques and avoidance of stress and caffeine when possible. She will call for reevaluation if she notices any hearing loss or dizziness. Otherwise follow-up as needed. [email or web address] Not available 12/17/2024 11:10:10 Plan of Treatment Reminders Order Date Submit Date Provider Last Modified By Organization Details Last Modified Time Details Appointments None record ed. Lab None record ed. Referral None record ed. Procedures None record ed. Surgeries None record ed. Imaging None record ed. Medication Orders None record ed. Patient TargetsNo targets recorded. Patient InstructionsNo instructions recorded. Reason for Referral None Reported. Results Created Date Observation Date Name Description Value Unit Range Abnormal Flag Note LastModifiedBy Organization Detail LastModifiedTime 12/18/19 25 audio gram No observ ation record ed. BARCODE Not Available 2024 15:46:47 Result Notes None recorded. Problems Name Problem SNOMED Code Status Onset Date Resolution Date Notes Provider Name and Address Organization Details Recorded Time Abnormal auditory perception 94277610 Active 2024 BOLIVAR WILSON , AUD 100 [facility], [address], [place], [address], [place] - [facility] [place] 5 10:58:13 Bilateral tinnitus 4954887177170 Active 2024 OMAR MERRITT PA-C 100 [facility], [address], [place], [address], [place] - [facility] [place] 11:10:15 Problem Notes None recorded. Procedures Surgical History Date Name Laterality Status Provider Name and Address Organization Details Recorded Time 12/17/2024 Air & Speech Audio with Tymps - 08895, 65164 & 60138 completed MYRA JARAMILLO 100 [facility] [address], [place], [address], [place] - [facility] [place] 12/17/2024 10:58:02 Imaging Results None recorded. Procedure Notes None recorded. Medical Equipment None Reported. Medications Name Sig Start Date Stop Date Status Note LastModified by Organization Details LastModified Time amoxicillin 500 mg capsule TAKE 1 CAPSULE BY MOUTH 3 TIMES A DAY FOR 7 DAYS active Not Available Not Available No t Available meclizine 25 mg tablet TAKE 1 TABLET (ORAL) 2 TO 3 TIMES PER DAY (DIZZINES S) FOR 5 DAYS active Not Available Not Available No t Available cephalexin 500 mg capsule TAKE 1 CAPSULE BY MOUTH 4 TIMES PER DAY FOR 7 DAYS active Not Available Not Available No t Available omeprazole 20 mg capsule,delay ed release TAKE 1 CAPSULE BY MOUTH 1 TIME EACH DAY. DO NOT CRUSH OR CHEW. active Not Available Not Available No t Available epinephrine 0.3 mg/0.3 mL injection, auto-injector INJECT 0.3 ML (0.3 MG TOTAL) INTO THE THIGH IF NEEDED FOR ANAPHYLAX IS. CALL 911 AFTER USE. active Not Available Not Available No t Available Vitals Date Recorded Body height Body mass index (BMI) Body weight Provider Name and Address Organization Details Last Updated DateTime 12/17/2024 157.48 cm 38.4 kg/m2 03277.4 g Genia Muir [place] [facility] [place] 12/17/2024 11:02:02 Social History None recorded. Functional Status None recorded. Mental Status None recorded. Family History Nothing Reported. Medical History No medical history recorded. Gynecological HistoryNo gynecological history recorded. Obstetrics History GPAL:G 0 P 0 0 0 0 Past Encounters Encounter ID Performer Location Encounter Start Date Encounter Closed Date Diagnosis/Indication Diagnosis SNOMED-CT Code Diagnosis ICD10 Code Diagnosis IMO Codes Diagnosis Note [id number] OMAR MERRITT PA-C [facility] [address] [place] [address] 12/17/2024 10:30:04 12/17/2024 11:08:21 Bilateral tinnitus 9499035567 102 H93.13 398990 Audiologic al evaluation results: Right ear:Normal hearing with excellent word recognitio n.Left ear:Normal hearing with excellent word recognitio n. Tympanomet ry:Right Ear:Type ALeft Ear:Type A Health Concerns Section Related Observation LastModified by Organization Detai ls LastModified Time None Recorded Concern Status LastModified by Organization Details LastModified Time None Recorded Advance Directives Directive None Recorded Payers Insurance Date Sequence Insurance Name Policy Number Policy Charles Covered Member ID Charles Member ID Guarantor Name 12/17/2024 1 [facility] - [facility] (MEDICAID REPLACEMENT - HMO) ORION Agarwal [id number] Aleshia Agarwal Notes Date Note Type Note Provider Name and Address Organization Details Recorded Time 12/17/2024 text/html ROS as noted in the HPI 44-year-old female presents for evaluation of bilateral tinnitus. It has been present for several years. No sensation of hearing loss. Sometimes it is a softer ringing and sometimes it is a louder ringing. She sleeps with white noise and a fan and typically does not struggle with the tinnitus. She does not drink caffeine but does have stress in her life. No reports of dizziness. OMAR MERRITT PA-C [address] [place] [address], [address], [facility] - [facility] 12/17/2024 11:10:40 OBGyn Episode No OBEpisode recorded.
--- OUTSIDE RECORDS SUMMARY | 2025-03-01 14:06 | XMS_ITS ---
Author Name [facility] Organization Unknown Care Team Organization Name Specialty Phone Email Start Date End Da te [facility] MACIE DUMONT Primary Care [email or web address] 11/02/2022 4 [facility] Jose Miguel Cruz Primary Care 07/05/2022 4 [facility] Karey Negrete Primary Care 03/07/2022 12/17/19 2 4
--- OUTSIDE RECORDS SUMMARY | 2025-03-01 14:06 | XMS_ITS | Data Portability ---
Author Organization [facility], [address] Address [address] [place] [address] Assessment No assessment recorded. Plan of Treatment Reminders Order Date Submit Date Provider Last Modified By Organization Details Last Modified Time Details Appointments None recorded. Lab None recorded. Referral None recorded. Procedures None recorded. Surgeries None recorded. Imaging None recorded. Medication Orders polymyxin B sulfate 10,000 unit-trime thoprim 1 mg/mL eye drops 2022 023 [id number], [phone] [place], [address], 19:36:53 Patient TargetsNo targets recorded. Patient Instructions Encounter Date Encounter Id Patient Instructions Last Modified By Organization Details Last Modified Time 12/25/2022 [id number] pinkeye: care instructions [email or web address] Not available 12/25/2022 19:36:51 styes and chalazia: care instructions [email or web address] Not available 12/25/2022 19:36:51 Use the eye drop s as prescribed. Apply warm compresses to your eye frequently. Do not manipulate the styes. See printed instructions. Follow-up with your doctor or return to [facility] if no improvement in a few days. Seek Emergency Medical evaluation for any worsening symptoms, particularly for fever, headache, rash, stiff neck, visual disturbance, light sensitivity. [email or web address] Not available 12/25/2022 19:38:22 Reason for Referral None Reported. Problems Name Problem SNOMED Code Status Onset Date Resolution Date Notes Provider Name and Address Organization Details Recorded Time Obese 104061722 Active 2022 [facility] 3 18:21:34 Disorder of back 18299418 Active 2022 THEO AGUIRREDORIECOCO null, [place] - [facility] 3 18:22:15 Lateral epicondylitis 448170374 Active 2022 THEO AGUIRREDORIECOCO null, [place] - [facility] 3 18:22:22 Post-traumatic stress disorder 66969364 Active 2022 THEO ZAVALALBINO null, [place] - [facility] 3 18:22:48 Attention deficit hyperactivity disorder 096951269 Active 2022 THEO ZAVALALBINO null, [place] - [facility] 3 18:22:55 Anxiety 23848275 Active 2022 THEOSmita MARION null, [place] - [facility] 3 18:23:01 Problem Notes None recorded. Medical Equipment None Reported. Allergies Allergen ID Allergen Name Allergen Category Reaction Reaction Severity Criticality Documentation Date Start Date Code Code System Note Provider Name and Address Organization Details Recorded Time 693874 cat dander environme nt Not available Not available low 12/25/2022 THEO AGUIRREDORIECOCO null, [place] - [facility] 18:20:58 [...] saturation in Arterial blood by Pulse oximetry Pain severity Myers-Cortes FACES pain rating scale Heart rate Respiratory rate Body temperature Body height Body mass index (BMI) Body weight Systolic And Diastolic Provider Name and Address Organization Details Last Updated DateTime 100 % 100 % 5 90 /min 19 /min 98.8 [degF] 157.48 cm 36.2 kg/m2 77133.2 9 g 107/74 mm[Hg] THEO AGUIRREALBINO [place] - [facility] 18:27:04 Social History Question Answer Notes LastModified by [employer] Details LastModified Time Tobacco Smoking Status Never Smoker THEO ROSASGOPI null, [place] - [facility] 12/25/2022 18:24:43 Have You Recently Traveled Abroad? No [place] Information not available 12/25/2022 Are You Currently In School? No Information not available 12/25/2022 Sex: Unknown Functional Status Question Answer Note LastModified by [employer] Details LastModified Time Do you use any illicit or recreational drugs? No Information not available 12/25/2022 What is your level of alcohol consumption? None Information not available 12/25/2022 Are you currently employed? No Information not available 12/25/2022 Mental Status None recorded. Family History Relationship [...] ICD10 Code Diagnosis IMO Codes Diagnosis Note [id number] [address] [place] [address] 01/23/2022 17:43:21 01/23/2022 19:23:43 [id number] [address] [facility] [place] [address] 12/06/2017 16:01:23 12/06/2017 17:41:18 [id number] [facility] [place] [address] 11/25/2021 09:57:46 11/25/2021 10:23:01 [id number] [facility] [address] [facility] [address] 03/27/2018 17:01:58 03/27/2018 18:28:32 [id number] Claudia Jerez MD [address] [place] [address] 12/25/2022 18:16:29 12/25/2022 19:49:20 Hordeolum externum of upper eyelid of left eye 6219067821 02753 H00.014 Acute conj unctivitis of left eye 0425982537 09568 H10.32 Health Concerns Section Related Observation LastModified by Organization Detai ls LastModified Time None Recorded Concern Status LastModified by Organization Details LastModified Time None Recorded Advance Directives Directive None Recorded Payers Insurance Date Sequence Insurance Name Policy Number Policy Charles Covered Member ID Charles Member ID Guarantor Name 12/25/2022 1 [facility] PLAN (MEDICAID HMO) ORION Agarwal [id number] Aleshia Agarwal Notes Date Note Type Note Provider Name and Address Organization Details Recorded Time 12/25/2022 text/html Eye problemsRepo rted by PatientHPIFor eye symptoms, patient reportsredness,discharg e, anditchingbut reportsno sensitivity to light,no pain in the eyes, andno blurred vision(left upper and lower lid swelling with ? stye.). For source of patient information, patient reportsinformation obtained from patientandpatient arrived at urgent care ambulatory. For location, patient reportsleft. For severity, patient reportsmoderate. For onset/timing, patient [id number]. For modifying factors, patient reportsnothing gives relief. For context, (no history of eye trauma, contact lens use, foreign body sensation, chemical exposure.). For bridgette aggravating factors, (no photophobia.).42 year old female presenting for evaluation of [...] or nasal congestion. Claudia Jerez MD [address] [facility] [address], [place], [address], [place] - [facility] 12/28/2022 14:46:11 OBGyn Episode No OBEpisode recorded.
[2025-03-01 14:35] VITALS: BP 132/72; PULSE 94; RESP 18; TEMP 36.1; O2SAT 98
== END 2025-03-01 14:36 | disposition home or self-care (01) ==
PROVIDERS: Physician Assistant; Emergency Provider Emergency Medicine Emergency Medical Services; PCP Internal Medicine
DX: R11.0 Nausea (principal); R42 Dizziness and giddiness; Z79.899 Other long term (current) drug therapy; Z53.21 Procedure and treatment not carried out due to patient leaving prior to being seen by health care provider
CPT/HCPCS: 80307; 93005; 99283

== ENCOUNTER → 2025-03-01 12:29 | Outpatient (BNV) | payer OTHER, SELFPAY | PROVIDERS: Emergency Provider Emergency Medicine Emergency Medical Services; PCP Internal Medicine; Visit Provider Internal Medicine Cardiovascular Disease | DX: R20.2 Paresthesia of skin (principal) | CPT/HCPCS: 93010 ==